=== PATIENT | male | born 1945 | race Caucasian/White ===

== ENCOUNTER → 2017-05-22 | Outpatient (CLI) | payer OTHER | END | disposition home or self-care (01) | LOC: C.LABBC 09:51 | PROVIDERS: ATTEND Urology | DX: R97.20 Elevated prostate specific antigen [PSA] (principal) ==

== ENCOUNTER → 2017-05-26 | Outpatient (CLI) | payer OTHER | END | disposition home or self-care (01) | LOC: C.PATHSPEC 15:53 | PROVIDERS: ATTEND Urology | DX: R97.20 Elevated prostate specific antigen [PSA] (principal); C61 Malignant neoplasm of prostate ==

== ENCOUNTER → 2017-08-18 | Outpatient (CLI) | payer OTHER ==
[~2017-08-18] MED LIST: AMLO10CA PO; ASCO1CAP3 PO; ASPCH81X PO; CALC500C70 PO; CHOL1000 PO; GADAVIST IV PRN; HYDR25TA4 PO; LOVA10TA3 PO; LOVA20TA4 PO; MULT-506 PO; VITACAP37 PO
--- NOTE | 2017-08-18 14:48 | DIAGNOSTIC IMAGING REPORT ---
PROSTATE MRI COMBO CLINICAL HISTORY: 72 years-old Male presenting with PROSTATE CA, Joselito 3+4 at the left apex and Joselito 3+3 at the right apex. PSA 7.49 ng/mL. TECHNIQUE: Multisequence, multiplanar MR imaging of the prostate was performed before and after the administration of intravenous contrast. Additional postprocessing was performed on a separate [employer] workstation by the radiologist for 3-D volumetric segmentation of the prostate and contouring of region(s) of interest (JANICE) for targeting. IV contrast: None. COMPARISON: None. FINDINGS: Prostate: The prostate measures 4.9 x 3.9 x 4.2 (DynaCAD prostate boundary segmentation volume 36 mL). Moderate changes of benign prostatic hyperplasia. Precontrast T1 weighted imaging demonstrates few small foci of intrinsic T1 hyperintensity along the right posterior lateral gland, possibly outside of the gland, which could represent calcification or proteinaceous/hemorrhagic material. Gel in place and the rectal prostatic recess. Suspicious lesion(s) described below: Lesion (DynaCAD JANICE) 1: Location: Right posterolateral peripheral zone at the apex. The lesion does not extend across the midline. Size: 11 mm (as measured on ADC for PZ lesion and T2WI for TZ lesion) T2W: 4. Circumscribed, homogeneous moderately hypointense lesion. Definite extraprostatic extension with ipsilateral neurovascular bundle involvement. No seminal vesicle invasion. DWI: 4. Focal markedly hypointense on ADC and markedly hyperintense on high b-value DWI. DCE: Positive. Focal enhancement corresponding to a suspicious finding, earlier or contemporaneous with adjacent normal tissue. PI-RADS: 4. Clinically significant cancer is likely to be present. No focal lesion is apparent at the left apex. Seminal vesicles normal. Bladder: Bladder wall thickening likely indicating chronic outlet obstruction. Bowel: Visualized portion of the rectum normal. Peritoneum: No free fluid in the pelvis. Lymph nodes: No lymphadenopathy in the visualized portion of the pelvis. Vasculature: Iliac vessels patent. Abdominal wall: Normal. Osseous structures: Normal bone marrow signal intensity. IMPRESSION: 1. 11 mm lesion in the right peripheral zone at the apex. PI-RADS: 4. Clinically significant cancer is likely to be present. Findings concerning for extraprostatic extension with tips lateral neurovascular bundle involvement. No seminal vesicle invasion. No lymphadenopathy. This lesion has been segmented for targeted biopsy. 2. No MR evidence of a focal lesion at the left apex. 3. Benign prostatic hyperplasia. Electronically signed by: Adolfo Shin M.D. 08/18/2017 2:47 PM Dictated Date/Time: 08/18/2017 2:26 PM
== END | disposition home or self-care (01) ==
LOC: C.MRIBC 12:14
PROVIDERS: ATTEND Physician Assistant Medical
DX: C61 Malignant neoplasm of prostate (principal)

== ENCOUNTER → 2017-11-10 | Outpatient (CLI) | payer OTHER ==
[~2017-11-10] MED LIST changes: -GADAVIST IV PRN; -LOVA20TA4 PO; +PSYL48.59; +TAMS0.4C38 PO
== END | disposition home or self-care (01) ==
LOC: C.LABBC 10:06
PROVIDERS: ATTEND Physician Assistant Medical
DX: C61 Malignant neoplasm of prostate (principal)

== ENCOUNTER → 2018-02-14 | Outpatient (CLI) | payer OTHER | END | disposition home or self-care (01) | LOC: C.LABBC 11:09 | PROVIDERS: ATTEND Urology | DX: C61 Malignant neoplasm of prostate (principal) ==